=== PATIENT | male | born 1955 | race American Indian/Alaskan Native ===

== ENCOUNTER 2018-04-25 07:24 | Emergency (ER) | payer BC ==
[2018-04-25 08:00] VITALS: BP 140/82
[2018-04-25] MEDS ORDERED: ANCEF IM ONE (09:32)
[2018-04-25] MEDS ORDERED: BOOSTRIX IM ONE (09:32)
[2018-04-25] MEDS ORDERED: THERMAZENE 50 GRAM TP ONE (09:32)
[2018-04-25] MEDS ORDERED: ULTRAM PO ONE (09:34)
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
[2018-04-25] MEDS ORDERED: WATER FOR INJ (PF) ONE (09:44)
== END 2018-04-25 10:00 | disposition home or self-care (01) ==
LOC: ED 07:24
DX: L03.113 Cellulitis of right upper limb (principal); X08.8XXA Exposure to other specified smoke, fire and flames, initial encounter; Y93.89 Activity, other specified; Y99.8 Other external cause status; Y92.009 Unspecified place in unspecified non-institutional (private) residence as the place of occurrence of the external cause
CPT/HCPCS: 90471; 90715; 96372; 99282; J0690